=== PATIENT | male | born 1975 | race Caucasian/White ===

== ENCOUNTER 2016-07-25 08:43 | Inpatient (IN) | payer OTHER ==
[2016-07-25 09:01] VITALS: BMI 20.9
--- NOTE | 2016-07-25 14:03 | HP ---
COWS - Scale Resting Pulse: 1= [place] 81-100 Sweatin=Flushed/Facial Moisture Restless Observation: 1= Difficult to Sit Still Pupil Size: 0= Normal to Room Light Bone or Joint Aches: 2= Severe Diffuse Aches Runny Nose/ Eye Tearin= Runny Nose/Eyes GI Upset > 30mins: 1= Stomach Cramp Tremor Observation: 2= Slight Tremor Visible Yawning Observation: 2= >3x During Session Anxiety or Irritability: 2=Irritable/Anxious Goose Flesh Skin: 3=Piloerection COWS Score: 18 CIWA Score - CIWA Score Nausea/Vomitin-Mild Nausea/No Vomiting Muscle Tremors: 4-Moderate,w/Arms Extend Anxiety: 4-Mod. Anxious/Guarded Agitation: 4-Moderately Restless Paroxysmal Sweats: 3 Orientation: 0-Oriented Tacttile Disturbances: 0-None Auditory Disturbances: 0-None Visual Disturbances: 0-None Headache: 1-Very Mild CIWA-Ar Total Score: 17 Admission ROS BHS - HPI Chief Complaint: I really need the help and wont sign out. Allergies/Adverse Reactions: Allergies Allergy/AdvReac Type Severity Reaction Status Date / Time No Known Allergies Allergy Verified 07/25/16 13:51 History of Present Illness: Pt is a 41yr old male with a history of heroin and cocaine dependence seeking detox for treatment. pt is also very anxious therefore pt will be on a meth/ valium regimen. Exam Limitations: No Limitations - Ebola screening Have you traveled outside of the country in the last 21 days: No Have you had contact with anyone from an Ebola affected area: No Have you been sick,other than usual withdrawal symptoms: No Do you have a fever: No - Review of Systems Constitutional: Chills, Diaphoresis, Loss of Appetite, Night Sweats, Changes in sleep, Unintentional Wgt. Loss EENT: reports: Tearing, Nose Congestion Respiratory: reports: Cough Cardiac: reports: No Symptoms Reported GI: reports: Diarrhea, Nausea, Poor Appetite, Poor Fluid Intake, Indigestion : reports: No Symptoms Reported Musculoskeletal: reports: No Symptoms Reported Integumentary: reports: Flushing, Sweating Neuro: reports: Headache, Tingling, Tremors, Dizziness Endocrine: reports: Excessive Sweating, Flushing, Intolerance to Cold, Intolerance to Heat Hematology: reports: No Symptoms Reported Psychiatric: reports: Judgement Intact, Mood/Affect Appropiate, Orientated x3, Agitated, Anxious Other Systems: Reviewed and Negative Patient History - Patient Medical History Hx Anemia: No Hx Asthma: No Hx Chronic Obstructive Pulmonary Disease (COPD): No Hx Cancer: No Hx Cardiac Disorders: No Hx Congestive Heart Failure: No Hx Hypertension: No Hx Hypercholesterolemia: Yes Hx Pacemaker: No HX Cerebrovascular Accident: No Hx Seizures: No Hx Dementia: No Hx Diabetes: No Hx Gastrointestinal Disorders: Yes (acid reflux) Hx Liver Disease: No Hx Genitourinary Disorders: No Hx Sexually Transmitted Disorders: No Hx Renal Disease (ESRD): No Hx Thyroid Disease: No Hx Human Immunodeficiency Virus (HIV): No (negative) Hx Hepatitis C: No (negative) Hx Depression: No Hx Suicide Attempt: No (denies) Hx Bipolar Disorder: No Hx Schizophrenia: No - Patient Surgical History Past Surgical History: Yes Hx Neurologic Surgery: No Hx Cataract Extraction: No Hx Cardiac Surgery: No Hx Lung Surgery: No Hx Breast Surgery: No Hx Breast Biopsy: No Hx Abdominal Surgery: No Hx Appendectomy: No Hx Cholecystectomy: No Hx Genitourinary Surgery: No Hx Section: No Hx Orthopedic Surgery: No Other Surgical History: incision and drainage of pilonidal abscess in 2003 Anesthesia Reaction: No - PPD History Previous Implant?: Yes Documented Results: Negative w/o proof Implanted On Prior [facility] Admission?: Yes Date: 05/24/14 Results: 0 MM - Reproductive History Patient is a Female of Child Bearing Age (11 -55 yrs old): No - Smoking Cessation Smoking history: Current every day smoker Have you smoked in the past 12 months: Yes Aproximately how many cigarettes per day: 20 Cigars Per Day: 0 Hx Chewing Tobacco Use: No Initiated information on smoking cessation: Yes 'Breaking Loose' booklet given: 07/25/16 - Substance & Tx. History Hx Alcohol Use: No Hx Substance Use: Yes Substance Use Type: Cocaine, Heroin Hx Substance Use Treatment: Yes - Substances Abused Heroin Route: Injection Frequency: Daily Amount used: 14 BAGS Age of first use: 15 Date of Last Use: 07/25/16 Cocaine Route: Injection Frequency: Daily Amount used: 14 BAGS Age of first use: 15 Date of Last Use: 07/25/16 Family Disease History - Family Disease History Family Disease History: Diabetes: Mother (HTN), Heart Disease: Father ( from an ND), Mother Admission Physical Exam [facility] - Vital Signs Vital Signs: Vital Signs - 24 hr 07/25/16 08:57 Temperature 96.6 F L Pulse Rate 88 Respiratory 18 Rate Blood Pressure 125/83 - Physical General Appearance: Yes: Appropriately Dressed, Moderate Distress, Thin, Tremorous, Irritable, Sweating, Anxious HEENTM: Yes: Hearing grossly Normal, Normal Voice, Nasal Congestion Respiratory: Yes: Lungs Clear, Normal Breath Sounds Neck: Yes: No masses,lesions,Nodules Breast: Yes: Within Normal Limits Cardiology: Yes: Regular Rate, S1, S2, Tachycardia Abdominal: Yes: Normal Bowel Sounds, Non Tender, Soft Genitourinary: Yes: Within Normal Limits Back: Yes: Normal Inspection Musculoskeletal: Yes: full range of Motion, Gait Steady, Back pain Extremities: Yes: Normal Capillary Refill, Non-Tender, Tremors Neurological: Yes: Fully Oriented, Alert, Normal Response Integumentary: Yes: Normal Color, Diaphoresis Lymphatic: Yes: Within Normal Limits - Diagnostic (1) Nicotine dependence Current Visit: Yes Status: Chronic Qualifiers: Nicotine product type: cigarettes Substance use status: uncomplicated Qualified Code(s): F17.210 - Nicotine dependence, cigarettes, uncomplicated (2) Opioid dependence with withdrawal Current Visit: Yes Status: Chronic Cleared for Admission [facility] - Detox or Rehab [facility] Level of Care: Medically Managed Detox Regimen/Protocol: Methadone/Valium [facility] Breath Alcohol Content Breath Alcohol Content: 0 Urine Drug Screen - Results Drug Screen Negative: No Urine Drug Screen Results: SHAWANDA-Cocaine, OPI-Opiates
[2016-07-25] MEDS ORDERED: MENTHOL/PHENOL 1 EACH UD MM PRN (14:27)
[2016-07-25] MEDS ORDERED: IBUPROFEN 400 MG TABLET (FP) PO PRN (14:27)
[2016-07-25] MEDS ORDERED: MAGNESIUM CITRATE 300 ML BOTTLE PO PRN (14:27)
[2016-07-25] MEDS ORDERED: hydrOXYzine PAMOATE 50 MG CAPSULE (FP) PO PRN (14:27)
[2016-07-25] MEDS ORDERED: MAGNESIUM HYDROX 2400MG/30ML ORAL SUSPENSION 30 ML CUP PO PRN (14:27)
[2016-07-25] MEDS ORDERED: diphenhydrAMINE HCL 50 MG CAPSULE PO PRN (14:27)
[2016-07-25] MEDS ORDERED: P-EPHED 60MG/TRIPROLIDI 2.5MG TABLET PO PRN (14:27)
[2016-07-25] MEDS ORDERED: LOPERAMIDE HCL 2 MG CAPSULE PO PRN (14:27)
[2016-07-25] MEDS ORDERED: guaiFENesin/D-METHORPHAN HB 10 ML UNIT-DOSE CUPS PO PRN (14:27)
[2016-07-25] MEDS ORDERED: diazePAM 5 MG TABLET PO PRN (14:27)
[2016-07-25] MEDS ORDERED: NICOTINE POLACRILEX 4 MG GUM BUC PRN (14:27)
[2016-07-25] MEDS ORDERED: MAG HYDROX/AL HYDROX/SIMETH 30 ML UNIT-DOSE CUP PO PRN (14:27)
[2016-07-25] MEDS ORDERED: ACETAMINOPHEN 325 MG TABLET (FP) PO PRN (14:27)
[2016-07-25] MEDS ORDERED: diazePAM 5 MG TABLET PO ONE (14:54)
[2016-07-25] MEDS ORDERED: METHADONE HCL 10 MG TABLET (FOR DETOX USE ONLY) PO ONE ×2 (14:56→23:00)
[2016-07-25] MEDS: diazePAM 5 MG TABLET PO SCH ×2 (15:25→22:40)
[2016-07-25 16:46] LABS: URINE APPEARANCE SLCLOUDY; URINE BILIRUBIN NEGATIVE (NEGATIVE); URINE BLOOD NEGATIVE (NEGATIVE); URINE COLOR YELLOW; URINE GLUCOSE (UA) NEGATIVE (NEGATIVE); URINE KETONE NEGATIVE (NEGATIVE); URINE LEUK ESTERASE NEGATIVE (NEGATIVE); URINE NITRITE NEGATIVE (NEGATIVE); URINE PROTEIN NEGATIVE (NEGATIVE); URINE UROBILINOGEN NEGATIVE E.U./dl (0.2-1.0)
[2016-07-25] MEDS ORDERED: THIAMINE HCL 100 MG TABLET (FP) PO SCH (22:00)
[2016-07-25] MEDS: cloNIDine HCL 0.1 MG TABLET PO SCH (22:40)
[2016-07-25] MEDS: TOLNAFTATE 1% CREAM 15 GM TUBE TP SCH (22:57)
[2016-07-26] MEDS: diazePAM 5 MG TABLET PO SCH ×2 (06:27→14:26)
[2016-07-26] MEDS ORDERED: CYCLOBENZAPRINE HCL 10 MG TABLET (FP) PO ONE (08:49)
[2016-07-26] MEDS ORDERED: CYCLOBENZAPRINE HCL 10 MG TABLET (FP) PO PRN (08:49)
[2016-07-26] MEDS ORDERED: PRENATAL VITAMINS W/ FOLIC ACID TABLET (FP) PO SCH (10:00)
[2016-07-26] MEDS ORDERED: METHADONE HCL 10 MG TABLET (FOR DETOX USE ONLY) PO SCH (10:00)
[2016-07-26] MEDS ORDERED: NICOTINE 21 MG/24 HOURS TOPICAL PATCH TD SCH (10:00)
[2016-07-26 10:07] LABS: MCH 29.2 pg (25.7-33.7); MCHC 33.1 g/dl (32.0-35.9); MEAN PLT VOLUME 9.3 fl (7.5-11.1); PLATELET COUNT 260 K/MM3 (134-434); RDW 14.9 % (11.9-15.9); WHITE BLOOD COUNT 8.6 K/mm3 (4.0-10.0)
[2016-07-26] MEDS: cloNIDine HCL 0.1 MG TABLET PO SCH (10:08)
[2016-07-26] MEDS: TOLNAFTATE 1% CREAM 15 GM TUBE TP SCH (10:08)
--- NOTE | 2016-07-26 10:38 | CONSULT ---
[facility] Psychiatric Consult - Data Date of interview: 07/26/16 Admission source: [facility] Identifying data: This is 41 years old male with unknown psychiatric hospitalization history intoxicated with Cocaine, Opioids and Nicotine, history of Alcohol,Cannabis abuse as well Substance Abuse History: - Smoking Cessation. Smoking history: Current every day smoker. Have you smoked in the past 12 months: Yes. Aproximately how many cigarettes per day: 20. Cigars Per Day: 0. Hx Chewing Tobacco Use: No. Initiated information on smoking cessation: Yes. 'Breaking Loose' booklet given : 07/25/16. - Substance & Tx. History. Hx Alcohol Use: No. Hx Substance Use: Yes. Substance Use Type: Cocaine, Heroin. Hx Substance Use Treatment: Yes. - Substances Abused. Heroin. Route: Injection. Frequency: Daily. Amount used: 14 BAGS. Age of first use: 15. Date of Last Use: 07/25/16. Cocaine. Route: Injection. Frequency: Daily. Amount used: 14 BAGS. Age of first use : 15. Date of Last Use: 07/25/16 Medical History: Syncope history Psychiatric History: Patient reports history of anxiety and depression, repors no medications taking prior to admission Physical/Sexual Abuse/Trauma History: Denies Additional Comment: Observation. Detox [facility] Mental Status Exam - Mental Status Exam Alert and Oriented to: Person Cognitive Function: Fair Patient Appearance: Unkempt Mood: Sad Affect: Flat Patient Behavior: Sedated Speech Pattern: Delayed Voice Loudness: Mildly Soft/Quiet Thought Process: Goal Oriented Thought Disorder: Being Controlled Hallucinations: Denies Suicidal Ideation: Denies Homicidal Ideation: Denies Insight/Judgement: Fair Sleep: Difficulty falling asleep Appetite: Fair Muscle strength/Tone: Mild Hypotonicity Gait/Station: Shuffling Additional Comments: Observation. [facility]ox [facility] Psychiatric Findings - Problem List ([place] 1, 2,3) (1) Nicotine dependence Current Visit: Yes Status: Chronic Qualifiers: Nicotine product type: cigarettes Substance use status: uncomplicated Qualified Code(s): F17.210 - Nicotine dependence, cigarettes, uncomplicated (2) Opioid dependence with withdrawal Current Visit: Yes Status: Chronic (3) Alcohol dependence Current Visit: No Status: Acute (4) Alcohol dependence, episodic drinking behavior Current Visit: No Status: Acute (5) Cocaine abuse Current Visit: No Status: Acute (6) Heroin dependence Current Visit: No Status: Acute (7) Marijuana abuse Current Visit: No Status: Acute (8) Drug-induced mood disorder Current Visit: Yes Status: Acute - Initial Treatment Plan Initial Treatment Plan: Observation. Detox [facility]
[2016-07-26 10:48] LABS: ALBUMIN 3.4 g/dl (3.4-5.0); ALK PHOS 130 U/L (45-117); ANION GAP 9 (8-16); BILIRUBIN,TOTAL 0.3 mg/dL (0.2-1.0); CALCIUM 8.4 mg/dL (8.5-10.1); CO2 28 mmol/L (21-32); GLUCOSE,RANDOM 126 mg/dL (74-106); SGOT/AST 68 U/L (15-37); SGPT/ALT 92 U/L (12-78); TOT PROT 6.8 g/dl (6.4-8.2)
--- NOTE | 2016-07-26 12:47 | PN ---
S CIWA - CIWA Score Nausea/Vomitin-No Nausea/No Vomiting Muscle Tremors: 4-Moderate,w/Arms Extend Anxiety: 3 Agitation: 4-Moderately Restless Paroxysmal Sweats: 3 Orientation: 0-Oriented Tacttile Disturbances: 0-None Auditory Disturbances: 0-None Visual Disturbances: 0-None Headache: 0-None Present CIWA-Ar Total Score: 14 BHS COWS - Scale Resting Pulse: 0= [place] 80 or Below Sweatin=Flushed/Facial Moisture Restless Observation: 1= Difficult to Sit Still Pupil Size: 0= Normal to Room Light Bone or Joint Aches: 2= Severe Diffuse Aches Runny Nose/ Eye Tearin= Runny Nose/Eyes GI Upset > 30mins: 0= None Tremor Observation of Outstretched Hands: 2= Slight Tremor Visible Yawning Observation: 2= >3x During Session Anxiety or Irritability: 2=Irritable/Anxious Goose Flesh Skin: 0=Smooth Skin COWS Score: 13 S Progress Note (SOAP) Subjective: muscle spasms shakes sweats interrupted sleep agitation anxiety Objective: 07/26/16 12:46 Vital Signs Temperature 97.7 F 07/26/16 09:53 Pulse Rate 78 07/26/16 09:53 Respiratory Rate 18 07/26/16 09:53 Blood Pressure 117/86 07/26/16 09:53 O2 Sat by Pulse Oximetry (%) Laboratory Tests 07/25/16 07/26/16 07/26/16 14:00 06:00 06:00 WBC 8.6 D RBC 3.80 L Hgb 11.1 L D Hct 33.5 L D MCV 88.0 MCHC 33.1 RDW 14.9 D Plt Count 260 D MPV 9.3 Sodium 141 Potassium 3.8 Chloride 104 Carbon Dioxide 28 Anion Gap 9 BUN 27 H D Creatinine 1.0 Creat Clearance w eGFR > 60 Random Glucose 126 H D Calcium 8.4 L Total Bilirubin 0.3 AST 68 H D ALT 92 H D Alkaline Phosphatase 130 H D Total Protein 6.8 Albumin 3.4 Urine Color Yellow Urine Appearance Slcloudy Urine pH 6.0 Ur Specific [place] 1.028 Urine Protein Negative Urine Glucose (UA) Negative Urine Ketones Negative Urine Blood Negative Urine Nitrite Negative Urine Bilirubin Negative Urine Urobilinogen Negative Ur Leukocyte Esterase Negative RPR Titer 07/26/16 06:00 WBC RBC Hgb Hct MCV MCHC RDW Plt Count MPV Sodium Potassium Chloride Carbon Dioxide Anion Gap BUN Creatinine Creat Clearance w eGFR Random Glucose Calcium Total Bilirubin AST ALT Alkaline Phosphatase Total Protein Albumin Urine Color Urine Appearance Urine pH Ur Specific [place] Urine Protein Urine Glucose (UA) Urine Ketones Urine Blood Urine Nitrite Urine Bilirubin Urine Urobilinogen Ur Leukocyte Esterase RPR Titer Nonreactive awake/alert ambulating no acute distress Assessment: 07/26/16 12:47 withdrawal sx Plan: continue detox increase fluids flexiril prn
--- NOTE | 2016-07-26 14:28 | EKG ---
Test Reason : Blood Pressure : / mmHG Vent. Rate : 073 BPM Atrial Rate : 073 BPM P-R Int : 140 ms QRS Dur : 094 ms QT Int : 390 ms P-R-T Axes : 067 065 052 degrees QTc Int : 429 ms NORMAL SINUS RHYTHM NORMAL ECG NO PREVIOUS ECGS AVAILABLE Confirmed by DAVIN MANZO MD ([id number]) on 07/26/2016 2:27:41 PM Referred By: Confirmed By:DAVIN MANZO MD
[2016-07-26] MEDS ORDERED: ONDANSETRON *ODT* 4 MG TABLET SL PRN (17:50)
[2016-07-26] MEDS ORDERED: TRIMETHOBENZAMIDE HCL 200MG/2ML INJ IM ONE (18:00)
--- NOTE | 2016-07-26 18:09 | DS ---
[facility] Detox Discharge Summary Admission Date: 07/25/16 Discharge Date: 07/26/16 - History Present History: Alcohol Dependence, Opioid Dependence Additional Comments: 41 years old male with long history of alcohol and opiate dependence, insists to leave the unit, "I want to go, I want to go" calm and firm wants to leave the facility, "not for me". provider and 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 Pertinent Past History: nicotine dependence - Physical Exam Results Vital Signs: Vital Signs Temperature 97.5 F L 07/26/16 15:01 Pulse Rate 86 07/26/16 15:01 Respiratory Rate 18 07/26/16 15:01 Blood Pressure 115/78 07/26/16 15:01 O2 Sat by Pulse Oximetry (%) Pertinent Admission Physical Exam Findings: withdrawal sx Laboratory Last Values WBC 8.6 K/mm3 (4.0-10.0) D 07/26/16 06:00 RBC 3.80 M/mm3 (4.00-5.60) L 07/26/16 06:00 Hgb 11.1 GM/dL (11.7-16.9) L D 07/26/16 06:00 Hct 33.5 % (35.4-49) L D 07/26/16 06:00 MCV 88.0 fl (80-96) 07/26/16 06:00 MCHC 33.1 g/dl (32.0-35.9) 07/26/16 06:00 RDW 14.9 % (11.9-15.9) D 07/26/16 06:00 Plt Count 260 K/MM3 (134-434) D 07/26/16 06:00 MPV 9.3 fl (7.5-11.1) 07/26/16 06:00 Sodium 141 mmol/L (136-145) 07/26/16 06:00 Potassium 3.8 mmol/L (3.5-5.1) 07/26/16 06:00 Chloride 104 mmol/L (98-107) 07/26/16 06:00 Carbon Dioxide 28 mmol/L (21-32) 07/26/16 06:00 Anion Gap 9 (8-16) 07/26/16 06:00 BUN 27 mg/dL (7-18) H D 07/26/16 06:00 Creatinine 1.0 mg/dL (0.7-1.3) 07/26/16 06:00 Creat Clearance w eGFR > 60 (>60) 07/26/16 06:00 Random Glucose 126 mg/dL (74-106) H D 07/26/16 06:00 Calcium 8.4 mg/dL (8.5-10.1) L 07/26/16 06:00 Total Bilirubin 0.3 mg/dL (0.2-1.0) 07/26/16 06:00 AST 68 U/L (15-37) H D 07/26/16 06:00 ALT 92 U/L (12-78) H D 07/26/16 06:00 Alkaline Phosphatase 130 U/L (45-117) H D 07/26/16 06:00 Total Protein 6.8 g/dl (6.4-8.2) 07/26/16 06:00 Albumin 3.4 g/dl (3.4-5.0) 07/26/16 06:00 Urine Color Yellow 07/25/16 14:00 Urine Appearance Slcloudy 07/25/16 14:00 Urine pH 6.0 (5.0-8.0) 07/25/16 14:00 Ur Specific [place] 1.028 (1.001-1.035) 07/25/16 14:00 Urine Protein Negative (NEGATIVE) 07/25/16 14:00 Urine Glucose (UA) Negative (NEGATIVE) 07/25/16 14:00 Urine Ketones Negative (NEGATIVE) 07/25/16 14:00 Urine Blood Negative (NEGATIVE) 07/25/16 14:00 Urine Nitrite Negative (NEGATIVE) 07/25/16 14:00 Urine Bilirubin Negative (NEGATIVE) 07/25/16 14:00 Urine Urobilinogen Negative E.U./dl (0.2-1.0) 07/25/16 14:00 Ur Leukocyte Esterase Negative (NEGATIVE) 07/25/16 14:00 RPR Titer Nonreactive (NONREACTIVE) 07/26/16 06:00 lab noted - Treatment Hospital Course: Detox Protocol Followed, Responded well - Medication Discharge Medications: Ambulatory Orders NK [No Known Home Medication] 09/15/14 - Diagnosis (1) Opioid dependence with withdrawal Current Visit: Yes Status: Acute (2) Alcohol dependence with uncomplicated withdrawal Current Visit: Yes Status: Acute - AMA Did Patient Leave Against Medical Advice: Yes
[2016-07-26 22:26] VITALS: BP 141/83; PULSE 85; TEMP 97.5
[2016-07-27] MEDS ORDERED: diazePAM 5 MG TABLET PO SCH (10:00)
[2016-07-27] MEDS ORDERED: METHADONE HCL 5 MG TABLET (FOR DETOX USE ONLY) PO SCH (10:00)
[2016-07-29] MEDS ORDERED: diazePAM 5 MG TABLET PO SCH (10:00)
[2016-07-29] MEDS ORDERED: METHADONE HCL 10 MG TABLET (FOR DETOX USE ONLY) PO SCH (10:00)
[2016-07-30] MEDS ORDERED: METHADONE HCL 5 MG TABLET (FOR DETOX USE ONLY) PO SCH (06:00)
== END 2016-07-26 18:15 | disposition left against medical advice (07) | DRG 770 ==
LOC: YASAS 08:43 → Y6N 14:25
PROVIDERS: ADMIT Internal Medicine Addiction Medicine; ATTEND Internal Medicine Addiction Medicine
PROC: HZ2ZZZZ Detoxification Services for Substance Abuse Treatment (ICD-10-PCS; principal; 2016-07-25)
DX: F11.23 Opioid dependence with withdrawal (principal); F10.230 Alcohol dependence with withdrawal, uncomplicated; F17.210 Nicotine dependence, cigarettes, uncomplicated; F19.24 Other psychoactive substance dependence with psychoactive substance-induced mood disorder; K21.9 Gastro-esophageal reflux disease without esophagitis; R00.0 Tachycardia, unspecified
CPT/HCPCS: 36415; 80053; 81003; 85027; 86593; 86803; 93005; 93010